=== PATIENT | female | born 1995 | race Caucasian/White ===

== ENCOUNTER 2018-05-29 17:29 | Emergency (ER) | payer BC ==
[2018-05-29 19:10] VITALS: BP 128/70
--- NOTE | 2018-05-29 19:42 | UC ---
Ear Complaint HPI - HPI Summary HPI Summary: 23-year-old woman comes in with a chief complaint of right ear pain. Patient has had upper respiratory tract infection symptoms for more than a week. She started with right ear pain yesterday and it's getting worse. No recent fevers. [id number] medications to help some with the symptoms. No cough or chest congestion no shortness of breath. - History of Current Complaint Chief Complaint: UCEar Stated Complaint: ST,RT EAR PAIN Time Seen by Provider: 05/29/18 19:34 Hx Last Menstrual Period: IUD; 05/20/18 Pain Intensity: 4 - Allergies/Home Medications Allergies/Adverse Reactions: Allergies Allergy/AdvReac Type Severity Reaction Status Date / Time No Known Allergies Allergy Verified 05/29/18 19:06 Home Medications: Home Medications Iud 1 implant ONCE 05/29/18 [History] PMH/Surg Hx/FS Hx/Imm Hx Previously Healthy: Yes - Surgical History Surgical History: None - Family History Known Family History: Positive: Non-Contributory - Social History Alcohol Use: Weekly Substance Use Type: None Smoking Status (MU): Never Smoked Tobacco Review of Systems All Other Systems Reviewed And Are Negative: Yes Constitutional: Positive: Negative Skin: Positive: Negative Eyes: Positive: Negative ENT: Positive: Sore Throat, Ear Ache, Nasal Discharge, Sinus Congestion Respiratory: Positive: Negative Cardiovascular: Positive: Negative Gastrointestinal: Positive: Negative Motor: Positive: Negative Neurovascular: Positive: Negative Musculoskeletal: Positive: Negative Neurological: Positive: Negative Psychological: Positive: Negative Is Patient Immunocompromised?: No Physical Exam Triage Information Reviewed: Yes Appearance: Well-Appearing, No Pain Distress, Well-Nourished Vital Signs: Initial Vital Signs Temp 98 F 05/29/18 19:07 Pulse 66 05/29/18 19:07 Resp 16 05/29/18 19:07 BP 128/70 05/29/18 19:07 Pulse Ox 100 05/29/18 19:07 Vital Signs Reviewed: Yes Eye Exam: Normal Eyes: Positive: Conjunctiva Clear ENT: Positive: Pharyngeal erythema, Nasal congestion, Nasal drainage, TM bulging - RIGHT Neck exam: Normal Neck: Positive: Supple Respiratory: Positive: Lungs clear, Normal breath sounds, No respiratory distress Cardiovascular: Positive: RRR Musculoskeletal Exam: Normal Musculoskeletal: Positive: Strength Intact, ROM Intact Neurological Exam: Normal Neurological: Positive: Alert, Muscle Tone Normal Psychological Exam: Normal Psychological: Positive: Age Appropriate Behavior Skin Exam: Normal Ear Complaint Course/Dx - Differential Dx/Diagnosis Provider Diagnosis: Right otitis media Discharge - Sign-Out/Discharge Documenting (check all that apply): Patient Departure All imaging exams completed and their final reports reviewed: No Studies - Discharge Plan Condition: Stable Disposition: HOME Prescriptions: Amoxicillin/Clavulanate TAB* [Augmentin TAB 875*] 875 mg PO BID #20 tab Patient Education Materials: Ear Infection (ED) Referrals: [facility] [place] [facility] REFERRAL [Outside] Additional Instructions: FOLLOW UP WITH YOUR DOCTOR IF NOT COMPLETELY IMPROVED. GET RECHECKED FOR ANY WORSENING OF YOUR CONDITION OR QUESTIONS OR CONCERNS. - Billing Disposition and Condition Condition: STABLE Disposition: Home
== END 2018-05-29 19:48 | disposition home or self-care (01) ==
LOC: UCCORT 17:29
DX: H66.91 Otitis media, unspecified, right ear (principal); J02.9 Acute pharyngitis, unspecified; R09.81 Nasal congestion
CPT/HCPCS: 99202; G0463

== ENCOUNTER 2019-05-26 09:46 | Emergency (ER) | payer BC ==
[2019-05-26] MEDS ORDERED: Ondansetron INJ* 2 MG/ML VIAL IV ONE (10:03)
[2019-05-26] MEDS ORDERED: Famotidine IV* 10 MG/ML 2 ML (20 mg) IV SLOW PU ONE (10:04)
[2019-05-26] MEDS ORDERED: Lactated Ringers 1000 ML Bag* 1,000 ML IV SCH (10:04)
--- NOTE | 2019-05-26 10:10 | UC ---
UC General HPI - HPI Summary HPI Summary: History of peptic ulcer disease - has never seen a language interpreter in the past. States she has been under a lot of stress past few weeks with poor diet and drinking 6 cups/coffee per day. Two nights ago she drank a lot more than she normally dose 6 beers. Normally she drinks 1-2 drinks/week. yesterday AM felt her stomach off and wished she had taken her omeprazole. This morning woke with epigastric pain, N/V and unable to keep any liquids down. Works at [employer] and was told to get checked out. No diarrhea. Normal BM this morning. No recent NSAID use Meds; reviewed - History of Current Complaint Chief Complaint: UCAbdominalPain Stated Complaint: ABD PAIN Time Seen by Provider: 05/26/19 09:54 Hx Last Menstrual Period: 05/19/2019 Pain Intensity: 8 - Allergy/Home Medications Allergies/Adverse Reactions: Allergies Allergy/AdvReac Type Severity Reaction Status Date / Time No Known Allergies Allergy Verified 05/26/19 09:50 Home Medications: Home Medications Iud 1 implant INTRAUTERI ONCE 05/29/18 [History Confirmed 05/26/19] Omeprazole 20 mg PO BID #60 capsule. 05/26/19 [Rx] PMH/Surg Hx/FS Hx/Imm Hx GI/ History: Gastroesophageal Reflux - Surgical History Surgical History: None - Family History Known Family History: Positive: Non-Contributory - Social History Alcohol Use: Occasionally Substance Use Type: None Smoking Status (MU): Never Smoked Tobacco Review of Systems All Other Systems Reviewed And Are Negative: Yes Gastrointestinal: Positive: Abdominal Pain, Vomiting, Nausea Physical Exam Triage Information Reviewed: Yes Appearance: Other: - mildly ill appearing, shaky and vomiting Vital Signs: Initial Vital Signs Temp 98.4 F 05/26/19 09:48 Pulse 71 05/26/19 09:48 Resp 20 05/26/19 09:48 BP 101/70 05/26/19 09:48 Pulse Ox 99 05/26/19 09:48 ENT: Positive: Normal ENT inspection Neck: Positive: Supple Respiratory: Positive: Lungs clear, Normal breath sounds Cardiovascular: Positive: RRR, No Murmur Abdomen Description: Positive: Soft, Other: - diffusely tender in epigastric region and tenderness more prominent on left side than right No rebound or guarding Bowel Sounds: Positive: Present Course/Dx - Course Course Of Treatment: This is a 24 yr old with a presumed hx of PUD who presents with epigastric pain , N/V in setting of recent heavy EtOH intake In urgent care 1 LR given, Zofran and pepcid 40 mg IV PO challenge, re-evaluation - unable to keep down any sips of water, no significant improvement in abdominal pain Screening labs drawn to rule out any other concerns such as pancreatitis Patient declined EMS transfer. Her friend is picking her up and driving her directly to [facility] Sign out given to Dr. Monroe in ED at [facility] Plan Recommend going to the ER for further work up and evaluation Recommend the ER follow up on her blood work If suspected diagnosis is gastritis would recommend continuing Omeprazole 20 mg 2 x/day for 4 weeks then cut back to daily Recommend establishing care with a [facility] - Diagnoses Provider Diagnosis: Gastritis, Nausea & vomiting Discharge ED - Sign-Out/Discharge Documenting (check all that apply): Patient Departure All imaging exams completed and their final reports reviewed: No Studies - Discharge Plan Condition: Fair Disposition: HOME-RECOMMEND TO ED Prescriptions: Omeprazole 20 mg PO BID #60 capsule.dr Referrals: [facility]IAN REFERRAL [Outside] Enio Israel MD [Medical Doctor] - No Primary Care Phys,NOPCP [Primary Care Provider] - Additional Instructions: Recommend going to directly to [facility] ER for further work up and evaluation Recommend the ER follow up on her blood work that was taken in urgent care today If suspected diagnosis is gastritis would recommend continuing Omeprazole 20 mg 2 x/day for 4 weeks then cut back to daily Recommend establishing care with a [facility] - Billing Disposition and Condition Condition: FAIR Disposition: Home-Recommend to ED
[2019-05-26 11:31] VITALS: BP 120/69
[2019-05-26 15:21] LABS: ABS Lymphocytes 0.9 10^3/ul (1.0-4.8); ABS Monocytes 0.7 10^3/ul (0-0.8); ABS Neutrophils 10.3 10^3/ul (1.5-7.7); Eosinophil % 0.2 %; Hematocrit 42 % (35-47); Hemoglobin 14.6 g/dL (12.0-16.0); Lymphocyte % 7.2 %; Mean Corpuscular HGB Conc 35 g/dL (31-36); Mean Corpuscular Hemoglobin 31 pg (27-31); Mean Corpuscular Volume 91 fL (80-97); Mean Platelet Volume 10.9 fL (7.4-10.4); Platelet Count 199 10^3/uL (150-450); Red Blood Count 4.66 10^6 /uL (3.70-4.87); Red Cell Distribution Width 13 % (10-15); White Blood Count 11.9 10^3/uL (3.5-10.8)
[2019-05-26 16:40] LABS: Albumin 4.8 g/dL (3.2-5.2); Calcium 10.1 mg/dL (8.6-10.3); Potassium 4.2 mmol/L (3.5-5.0); Total Bilirubin 0.6 mg/dL (0.2-1.0)
[2019-05-26 16:46] LABS: BUN/Creatinine Ratio 11.8 (8-20); EGFR African American 99.4 (>60); EGFR Non-African American 82.2 (>60); Globulin 2.4 g/dL (2-4); Total Protein 7.2 g/dL (6.4-8.9)
== END 2019-05-26 11:45 | disposition home health service (06) ==
LOC: UCCORT 09:46
DX: K29.70 Gastritis, unspecified, without bleeding (principal); R11.2 Nausea with vomiting, unspecified; K21.9 Gastro-esophageal reflux disease without esophagitis; Z79.899 Other long term (current) drug therapy
CPT/HCPCS: 36415; 80053; 83690; 85025; 96361; 96375; 99212; G0463; J2405